=== PATIENT | female | born 1990 | race Caucasian/White ===

== ENCOUNTER 2021-05-09 06:23 | Day surgery (SDC) | payer SELFPAY ==
[2021-05-04 12:57] VITALS: BMI 25.0
[2021-05-09] MEDS ORDERED: BUPIVACAINE HCL/PF 0.25% (2.5MG/ML) 10 ML VIAL ONE ×2 (07:19→10:45)
[2021-05-09] MEDS ORDERED: LIDOCAINE 1%/EPI 1:100000 (20 ML MULTI DOSE VIAL) ONE (07:20)
[2021-05-09] MEDS ORDERED: PROPOFOL 20 ML ONE ×12 (07:29→11:56)
[2021-05-09] MEDS ORDERED: LIDOCAINE HCL/PF 2% SDV 5ML VIAL ONE (07:31)
[2021-05-09] MEDS ORDERED: ONDANSETRON 4 MG/2 ML VIAL ONE ×2 (07:31→10:50)
[2021-05-09] MEDS ORDERED: SUCCINYLCHOLINE CHLORIDE 200 MG/10 ML SYRINGE ONE (07:31)
[2021-05-09] MEDS ORDERED: BUPIVACAINE HCL/PF 2.5 MG/ML - 30 ML VIAL IJ ONE (07:54)
[2021-05-09] MEDS ORDERED: MIDAZOLAM HCL 2 MG/2 ML SINGLE DOSE VIAL ONE (08:01)
[2021-05-09] MEDS ORDERED: KETAMINE HCL 200 MG/20 ML VIAL ONE (08:02)
[2021-05-09] MEDS ORDERED: HYDROmorphone HCL/PF 1 MG/ML VIAL ONE (08:04)
[2021-05-09] MEDS ORDERED: ROCURONIUM BROMIDE 50 MG/5 ML SYRINGE ONE ×2 (08:04→10:19)
[2021-05-09] MEDS ORDERED: ePHEDrine SULFATE 50 MG/1 ML AMPULE ONE (09:20)
[2021-05-09] MEDS ORDERED: ceFAZolin SODIUM 1 GM VIAL ONE (10:50)
[2021-05-09] MEDS ORDERED: MINERAL OIL/PETROLATUM,WHITE 3.5 GM TUBE ONE (10:50)
[2021-05-09] MEDS ORDERED: NEOSTIGMINE METHYLSULFATE 0.5 MG/1 ML - 10 ML MDV ONE (11:00)
[2021-05-09] MEDS ORDERED: GLYCOPYRROLATE 0.2 MG/1 ML VIAL ONE (11:00)
[2021-05-09] MEDS ORDERED: LIDOCAINE HCL 2% JELLY (5 ML/TUBE) ONE (11:06)
[2021-05-09] MEDS ORDERED: PROMETHAZINE HCL 25 MG/1 ML VIAL IVPUSH PRN (12:16)
[2021-05-09] MEDS ORDERED: LACTATED RINGERS SOLUTION 1,000 ML IV SCH (12:30)
[2021-05-09] MEDS ORDERED: oxyCODONE HCL 5 MG TABLET PO PRN (12:54)
[2021-05-09 13:28] VITALS: TEMP 97.8
[2021-05-09 14:15] VITALS: BP 102/57; PULSE 92
== END 2021-05-09 14:25 | disposition home or self-care (01) ==
LOC: FASU 06:23
PROVIDERS: ATTEND Surgery
PROC: 0H0V0ZZ Alteration of Bilateral Breast, Open Approach (ICD-10-PCS; principal; 2021-05-09 09:05)
DX: N64.81 Ptosis of breast (principal); N62 Hypertrophy of breast
CPT/HCPCS: 81025; 88302-TC; 94760